=== PATIENT | female | born 1965 | race Caucasian/White ===

== ENCOUNTER 2017-08-04 08:23 | Inpatient (IN) | payer MEDICARE, OTHER ==
[~2017-08-04] VITALS: Ht 154.9 cm; Wt 47.6 kg
--- NOTE | 2017-08-04 15:15 | NUR ---
GPS NURSING NOTE PT IS A 51 Y/O FEMALE, BROUGHT IN TO THE HOSPITAL BY AMBULANCE, ADMITTED ON A 5150 HOLD FOR DTO/GD FROM [facility]. PT IS ADMITTED ON A 5150 ASA DTO/GD. PT WAS SEEN AT THE REQUEST OF [facility] RESIDENTS DUE TO PT'S INCREASING PARANOIA AND AGGRESSION. PT IS DIAGNOSED WITH SCHIZOPHRENIA, IS BELIEVED TO NOT BE TAKING HER MEDICATIONS AND HAS A HISTORY OF PSYCHIATRIC HOSPITALIZATIONS. PT HAS NOT EATEN IN SEVERAL DAYS DUE TO BELIEFS THAT HER HOUSEMATES ARE TAMPERING WITH HER FOOD. PT HAS NOT SLEPT IN 5-6 DAYS, HAS BEEN TALKING TO/ BITTING, HALLUCINATIONS AND BELIEVES HER HOUSEMATES ARE STEALING FROM HER. PT IS THREATENING TO BREAK HER HOUSEMATE'S HANDS FOR STEALING. PT CURRENTLY DENIES SUICIDAL IDEATIONS AND HOMICIDAL IDEATIONS, PT IS AGITATED, UNCOOPERATIVE, ANXIOUS, PACING THE HALLWAY, REFUSED TO TAKE ATIVAN 1 MG PO AND SPIT OUT 0.5 MG, PT IS DEMANDING, PARANOID, APPEARS TO BE RESPONDING TO INTERNAL STIMULI, VS: BP 151/93, HR 99, TEMP 98.6, RR 20, SPO2 98% RA, NO PAIN COMPLAINTS. ALL VALUABLES WERE INVENTORIED AND PT REFUSED TO ALL PAPERWORK, PT'S RIGHTS HANDBOOK WAS EXPLAINED AND GIVEN TO PT. PT WAS ORIENTED TO THE UNIT. WILL CONTINUE TO MONITOR Q15 MIN FOR SAFETY AND BEHAVIOR.
[2017-08-04] MEDS: LORAZEPAM 0.5 MG TABLET PO STA ×2 (15:29→15:32)
[2017-08-04] MEDS ORDERED: MAG HYDROX/AL HYDROX/SIMETH 30 ML UDC PO PRN (15:30)
[2017-08-04] MEDS ORDERED: ACETAMINOPHEN 325 MG TABLET PO PRN (15:30)
[2017-08-04] MEDS ORDERED: MAGNESIUM HYDROXIDE 30 ML UDC PO PRN (15:30)
--- NOTE | 2017-08-04 15:32 | NUR ---
GPS NOTE PT TOOK 0.5 MG OF ATIVAN AND SPIT OUT 0.5 MG
[2017-08-04 16:00] VITALS: BP 151/93
[2017-08-04] MEDS ORDERED: ETOD200C4 (20:24)
[2017-08-04] MEDS ORDERED: TRAM50TA2 PO (20:24)
[2017-08-04] MEDS ORDERED: GABA-534 PO (20:24)
[2017-08-04] MEDS ORDERED: MELO-107 PO (20:24)
[2017-08-04] MEDS ORDERED: METH500T6 PO (20:24)
--- NOTE | 2017-08-04 21:11 | NUR ---
GPS RN NOTE: NOTIFIED DR. BIRMINGHAM TO RECONCILE MEDICATION
[2017-08-04] MEDS ORDERED: METHOCARBAMOL (500MG) 500 MG TABLET PO SCH (22:00)
[2017-08-04] MEDS ORDERED: TRAMADOL HCL 50 MG TABLET PO SCH (22:00)
[2017-08-04] MEDS ORDERED: MELOXICAM 7.5 MG TABLET PO ONE (23:00)
--- NOTE | 2017-08-04 23:00 | NUR ---
GPS RN NOTE: PATIENT REFUSED MOBIC X 3 ATTEMPTS, EXPLAINED THE RISK AND BENEFITS BUT PATIENT STILL REFUSED. WILL CONTINUE TO MONITOR
--- NOTE | 2017-08-05 03:28 | NUR ---
GPS RN NOTE: CLARIFICATION ORDER OF TRAMADOL AND ROBAXIN RECEIVED FROM DR. BIRMINGHAM NOTED AND CARRIED OUT
[2017-08-05 08:00] VITALS: BP 132/91
[2017-08-05] MEDS: MELOXICAM 7.5 MG TABLET PO SCH (08:47)
[2017-08-05] MEDS: GABAPENTIN 300 MG CAPSULE PO SCH ×2 (08:47→16:41)
--- NOTE | 2017-08-05 08:48 | NUR ---
[id number]: PT REFUSED MORNING MEDICATIONS. OFFERED 3X. EXPLAINED THE RISK AND BENEFITS OF THE MEDICATIONS
[2017-08-05 16:27] VITALS: BP 113/80
--- NOTE | 2017-08-05 16:41 | NUR ---
[id number]: PT REFUSED EVENING MEDICATION. EVEN AFTER OFFERING 3X. EXPLAINED THE RISK AND BENEFITS.
[2017-08-05 20:15] VITALS: BP 132/88
--- NOTE | 2017-08-05 20:30 | NUR ---
GPS RN: DR. GALDAMEZ CALLED UNIT, WITH ORDERS TO TRANSFER SERVICE FOR THIS PATIENT INTO DR. PIERSON'S CARE. DR. PIERSON THEN NOTIFIED AND ACCEPTED PATIENT. WILL ENDORSE TO DAY SHIFT NURSE.
[2017-08-05] MEDS: OLANZAPINE 5 MG/TAB.RAPDIS PO SCH (22:00)
--- NOTE | 2017-08-05 22:00 | NUR ---
RN NOTES PATIENT REFUSED ZYPREXA ADMINISTRATION X3.PATIENT STATES SHE DOES NOT TAKE ZYPREXA AND ITS NOT A GOOD DRUG TO TAKE. PATIENT EDUCATION REINFORCED. WILL CONTINUE TO MONITOR.
[2017-08-06 07:56] VITALS: BP 159/97
[2017-08-06] MEDS: MELOXICAM 7.5 MG TABLET PO SCH (09:00)
[2017-08-06] MEDS: GABAPENTIN 300 MG CAPSULE PO SCH ×2 (09:00→17:23)
[2017-08-06] MEDS: LORAZEPAM 0.5 MG TABLET PO PRN (10:38)
--- NOTE | 2017-08-06 11:28 | NUR ---
patient became ouy of control and yelling and being intrusive to staff and peers , pt has refused all meds , called to dr. MENON FOR ORDERS . HE ORDERTED HALDOL 5M IM TIMES 1 AND ATIVAN 1MG IM AND BENADRYL 25 MG OF WHICH PT IS ALLERGIC TO BENADRYL . [address] menon regarding benadryl allergy waiting for return call
[2017-08-06] MEDS ORDERED: HALOPERIDOL LACTATE INJ 5 MG/ML VIAL IM ONE (11:30)
[2017-08-06] MEDS ORDERED: LORAZEPAM INJ 2 MG/ML VIAL IM ONE (11:30)
[2017-08-06 16:18] VITALS: BP 143/88
[2017-08-06 20:34] VITALS: BP 156/83
[2017-08-06] MEDS: OLANZAPINE 5 MG/TAB.RAPDIS PO SCH (22:00)
--- NOTE | 2017-08-06 22:43 | NUR ---
GPS RN NOTES PATIENT REFUSED HS MEDICATION. PATIENT WAS SAYING SHE WAS GOING TO TAKE MEDICATION BUT PRETENDED TO BE ASLEEP. STATES THAT SHE IS TIRED AND COLD. MEDICATION OFFERED 3X. PATIENT REFUSED.
--- NOTE | 2017-08-07 03:36 | NUR ---
GPS RN NOTES PATIENT CAME TO RN COMPLAINING OF BACK PAIN AND ASKING FOR TYLENOL. ACETAMINOPHEN GIVEN TO PATIENT BUT PATIENT REFUSED. ASKED RN HOW SHE KNEW THAT PATIENT HAS BACK PAIN. STATES SHE COULD NOT TRUST THAT MEDICATION IS SAFE TO TAKE. FURTHERMORE, PATIENT ASKED FOR A SNACK AND AFTER EATING WENT TO BATHROOM AND TRIED TO VOMIT. STATED THAT SOMETHING WAS WRONG WITH THE FOOD AND SHES TRYING TO VOMIT IT OUT. PATIENT VERY PARANOID AT THIS TIME.
[2017-08-07 08:00] VITALS: BP 133/88
[2017-08-07] MEDS: GABAPENTIN 300 MG CAPSULE PO SCH ×2 (08:34→17:09)
[2017-08-07] MEDS: MELOXICAM 7.5 MG TABLET PO SCH (08:35)
--- NOTE | 2017-08-07 15:10 | NUR ---
Initial Discharge Note: Patient is unwilling to disclose the address / contact number to her sober living, saying she wants to return there. ANUPAM received a voicemail from Arti, stock preparation operator of the sober living. In the voicemail, Arti stated that patient is not permitted to return. ANUPAM spoke with patient and patient stated that she is going to live with her boyfriend, Joe, but that she paid rent through the month of July and that she need to go there to get her things. Patient refuses alternative placement. ANUPAM called and left a voicemail for Arti, . ANUPMA provided her direct contact information in the voicemail.
[2017-08-07 16:00] VITALS: BP 110/78
[2017-08-07 20:00] VITALS: BP 125/84
[2017-08-07] MEDS: OLANZAPINE 5 MG/TAB.RAPDIS PO SCH (21:26)
--- NOTE | 2017-08-07 21:26 | NUR ---
GPS/MATTRESS STUFFER NOTES: PT. REFUSED HS OLANZAPINE 5MG PO ORDERED. OFFERED 3X. EXPLAINED RISK AND BENEFITS. PT. STILL REFUSED. WILL CONTINUE TO MONITOR.
[2017-08-07] MEDS: LORAZEPAM 0.5 MG TABLET PO PRN (23:15)
[2017-08-08 08:00] VITALS: BP 132/88
[2017-08-08] MEDS: MELOXICAM 7.5 MG TABLET PO SCH (08:15)
[2017-08-08] MEDS: GABAPENTIN 300 MG CAPSULE PO SCH ×2 (08:15→17:00)
[2017-08-08] MEDS: HALOPERIDOL 5 MG TABLET PO SCH ×2 (11:30→17:00)
[2017-08-08] MEDS: BENZTROPINE MESYLATE (1 MG) 1 MG TABLET PO SCH ×2 (11:30→17:00)
[2017-08-08] MEDS: BENZTROPINE MESYLATE (2MG/2ML) 2 MG/2 ML AMPUL IM PRN ×2 (12:21→18:26)
[2017-08-08] MEDS: HALOPERIDOL LACTATE INJ 5 MG/ML VIAL IM PRN ×2 (12:21→18:26)
--- NOTE | 2017-08-08 12:21 | NUR ---
rn notes patient lenora at this time, an refused po medication offered medication x3 but still refused, administered Haldol 5 mg/ml im, and Cogentin 1 mg/ml im left upper gluteal area as prescribed per refusal po medication. continued monitoring.
[2017-08-08 16:28] VITALS: BP 116/72
--- NOTE | 2017-08-08 18:30 | NUR ---
RN NOTES PATIENT REFUSED PO SCHEDULED MEDICATION, OFFERED X3 BUT STILL REFUSED, ADMINISTERED HALDOL 5 MG/ML IM, AND COGENTIN 1 MG /ML IM RIGHT OUTER GLUTEAL AREA, V/S TAKEN STABLE, CALL BURCH WITHIN TO REACH, SAFETY PRECAUTION MAINTAINED ALL THE TIME.
[2017-08-08 20:00] VITALS: BP 105/82
--- NOTE | 2017-08-08 20:00 | NUR ---
GPS RN NOTE: PATIENT PACING HALLWAY, PARANOID, EASILY AGITATED. PATIENT REQUEST FOR TYLENOL, WHEN REMOVED, PATIENT REFUSED TO TAKE TYLENOL. WILL CONTINUE TO MONITOR.
[2017-08-08] MEDS: LORAZEPAM 0.5 MG TABLET PO PRN (20:45)
--- NOTE | 2017-08-08 20:47 | NUR ---
GPS RN NOTE: PATIENT ANXIOUS AND REQUEST FOR MEDICATION. ATIVAN 1MG ORAL GIVEN PER MD ORDER. WILL CONTINUE TO MONITOR.
[2017-08-08] MEDS: TRAMADOL HCL 50 MG TABLET PO PRN (21:51)
--- NOTE | 2017-08-08 22:00 | NUR ---
GPS RN NOTE: PATIENT COMPLAINS OF HEAD PAIN 01/06, ULTRAM 50MG ORAL GIVEN PER MD ORDER. WILL CONTINUE TO MONITOR.
[2017-08-08] MEDS: TEMAZEPAM 7.5 MG CAPSULE PO PRN (22:30)
[2017-08-09 08:00] VITALS: BP 120/81
[2017-08-09] MEDS: GABAPENTIN 300 MG CAPSULE PO SCH ×2 (08:26→17:57)
[2017-08-09] MEDS: HALOPERIDOL 5 MG TABLET PO SCH ×2 (08:27→17:57)
[2017-08-09] MEDS: MELOXICAM 7.5 MG TABLET PO SCH (08:27)
[2017-08-09] MEDS: BENZTROPINE MESYLATE (1 MG) 1 MG TABLET PO SCH ×2 (08:27→17:57)
[2017-08-09] MEDS: TRAMADOL HCL 50 MG TABLET PO PRN ×2 (08:27→19:54)
--- NOTE | 2017-08-09 11:44 | NUR ---
GPS/RN PATIENT IS REPEATEDLY CALLING , HE DOES NOT WANT HER CALLING AT THIS TIME AND WOULD LIKE TO HOLD ALL CALLS FROM HER UNTIL FURTHER NOTICE. PER DR CHAN NEW ORDER FOR PATIENT TO USE PHONE AND MAKE CALLS WITH STAFF SUPERVISION. ORDER IN SYSTEM.
[2017-08-09 16:00] VITALS: BP 113/70
--- NOTE | 2017-08-09 19:54 | NUR ---
GPS/RN-NOTES: PATIENT COMPLAINED OF MILD MEDIAL BACK PAIN AND PATIENT IS REQUESTING FOR TRAMADOL. VITAL SIGNS ARE STABLE, TRAMADOL 50MG PO GIVEN PRN ORDER. PATIENT SPIT IT OUT THE MEDICATION, AND STATES IT DOESN'T WORK WELL AND CAUSES ME NAUSEOUS. EXPLAINED RISKS AND BENEFITS. WILL CONTINUE TO MONITOR.
[2017-08-09 20:00] VITALS: BP 120/70
[2017-08-10 08:33] VITALS: BP 111/78
[2017-08-10] MEDS: MELOXICAM 7.5 MG TABLET PO SCH (09:00)
[2017-08-10] MEDS: GABAPENTIN 300 MG CAPSULE PO SCH ×2 (10:02→16:57)
[2017-08-10] MEDS: BENZTROPINE MESYLATE (1 MG) 1 MG TABLET PO SCH ×2 (10:09→16:56)
[2017-08-10] MEDS: METHOCARBAMOL (500MG) 500 MG TABLET PO PRN (16:57)
--- NOTE | 2017-08-10 16:57 | NUR ---
NURSING NOTE PT COMPLAINED OF MILD BACK PAIN, PT REQUESTING ROBAXIN, ROBAXIN 500 MG PO WAS GIVEN PER PT REQUEST, VS STABLE
[2017-08-10] MEDS: HALOPERIDOL 5 MG TABLET PO SCH (16:58)
[2017-08-10 17:07] VITALS: BP 123/82
[2017-08-10 19:59] VITALS: BP 127/82
[2017-08-10] MEDS: TEMAZEPAM 7.5 MG CAPSULE PO PRN (22:15)
[2017-08-10] MEDS: TRAMADOL HCL 50 MG TABLET PO PRN (22:44)
--- NOTE | 2017-08-10 22:44 | NUR ---
GPS RN NOTES: PATIENT C/O PAIN ON HER LOWER BACK ON A SCALE OF 0/10 AND 10 IS THE WORST PAIN IMAGINABLE PATIENT RATES 7/10, PATIENT IS REQUESTING TRAMADOL. ADMINISTERED TRAMADOL 50MG PO PRN ORDER. WILL CONTINUE TO MONITOR AND ASSES FOR PAIN.
--- NOTE | 2017-08-10 23:00 | NUR ---
GPS RN NOTES: PATIENT IS REQUESTING FOR A STRONGER PAIN MEDICATION SHE STATED SHE WAS TAKING NORCO 5/325MG PO BID AT HOME. PAGED DR. BRAVO [facility] ON-CALL. AWAITING CALL BACK FROM .
[2017-08-11 08:00] VITALS: BP 122/81
[2017-08-11] MEDS: HALOPERIDOL 5 MG TABLET PO SCH ×2 (09:16→17:44)
[2017-08-11] MEDS: MELOXICAM 7.5 MG TABLET PO SCH (09:16)
[2017-08-11] MEDS: GABAPENTIN 300 MG CAPSULE PO SCH ×2 (09:16→17:44)
[2017-08-11] MEDS: BENZTROPINE MESYLATE (2MG/2ML) 2 MG/2 ML AMPUL IM PRN (09:17)
[2017-08-11] MEDS: BENZTROPINE MESYLATE (1 MG) 1 MG TABLET PO SCH ×2 (09:18→17:44)
[2017-08-11 16:00] VITALS: BP 127/76
--- NOTE | 2017-08-11 16:16 | NUR ---
Discharge Planning: Patient is evasive about her information and it seems that patient is paranoid about disclosing this information [address / try out person]. Patient believes that someone is "after her" and that the cooks at the hospital are "trying to poison" her. Patient is unwilling to discuss any discharge plans. Patient does not want any alternative placements. Patient states that she wants to go to her sober living facility, get her things, and move in with her boyfriend, Joe. Patient does not wish to disclose the contact number for Joe. ANUPAM left a voicemail for Arti binder lockstitch of the sober [facility], . ANUPAM provided her direct contact information in the voicemail. ANUPAM has not received any calls from Arti since Arti's initial phone call. Arti does not answer her phone and does not return calls.
[2017-08-11] MEDS: TRAMADOL HCL 50 MG TABLET PO PRN (19:56)
[2017-08-11 19:58] VITALS: BP 118/79
[2017-08-12] MEDS: TRAMADOL HCL 50 MG TABLET PO PRN ×3 (04:36→18:45)
[2017-08-12 08:00] VITALS: BP 115/69
--- NOTE | 2017-08-12 10:38 | NUR ---
Discharge Planning: ANUPAM received a call from Arti rebar worker of the sober living, . Arti confirmed that patient's belongings are at the sober living facility and that they are in safely kept in a safe. Arti stated that patient is able to come get her belongings when she is discharged, but she would like to know in advance in order to make the time for that. ANUPAM stated that she will inform Arti of the discharge.
[2017-08-12] MEDS: GABAPENTIN 300 MG CAPSULE PO SCH ×2 (10:47→16:40)
[2017-08-12] MEDS: HALOPERIDOL 5 MG TABLET PO SCH ×2 (10:47→16:40)
[2017-08-12] MEDS: BENZTROPINE MESYLATE (1 MG) 1 MG TABLET PO SCH ×2 (10:49→16:40)
[2017-08-12] MEDS: MELOXICAM 7.5 MG TABLET PO SCH (10:49)
[2017-08-12 16:00] VITALS: BP 123/71
[2017-08-12 20:41] VITALS: BP 120/69
[2017-08-13] MEDS: TRAMADOL HCL 50 MG TABLET PO PRN ×2 (01:58→12:35)
[2017-08-13] MEDS: LORAZEPAM 0.5 MG TABLET PO PRN ×2 (03:11→23:03)
--- NOTE | 2017-08-13 03:12 | NUR ---
GPS RN NOTES: PATIENT VERY ANXIOUS, V/S ARE STABLE, ADMINISTERED ATIVAN 1MG PO PRN ORDER. WILL CONTINUE TO MONITOR [id number] FOR SAFETY AND BEHAVIOR.
[2017-08-13 08:00] VITALS: BP 112/72
[2017-08-13] MEDS: MELOXICAM 7.5 MG TABLET PO SCH (09:00)
[2017-08-13] MEDS: BENZTROPINE MESYLATE (1 MG) 1 MG TABLET PO SCH ×2 (09:20→16:58)
[2017-08-13] MEDS: HALOPERIDOL 5 MG TABLET PO SCH (09:21)
[2017-08-13] MEDS: GABAPENTIN 300 MG CAPSULE PO SCH ×2 (09:21→16:58)
[2017-08-13] MEDS ORDERED: ALBUTEROL FS 2.5 MG/3 ML VIAL.NEB NEB PRN (11:30)
[2017-08-13] MEDS ORDERED: ALBUTEROL SULFATE 8 GM HFA.AER.AD IH PRN (11:30)
--- NOTE | 2017-08-13 12:35 | NUR ---
RN NOTE: PATIENT STATES SHE HAS 8/10 PAIN. TRAMDOL 50 MG GIVEN
[2017-08-13] MEDS: ARIPIPRAZOLE 5 MG TABLET PO SCH (12:42)
--- NOTE | 2017-08-13 14:29 | NUR ---
Discharge Planning: SW spoke with patient today. Patient appears to be less paranoid and more cooperative. However, patient still remains evasive. Patient states that she wants a list of sober living facilities, but does not want SW to get involved in securing placement. Patient is unwilling to go to SNF [stating she is independent] or a board and care [stating it is too expensive]. Patient states that she has a budged of $500. Patient states that she wants to find a room for rent, but wants ANUPAM to provide her with resources. SW gave patient a printout of sober living facilities. SW will also provide patient with additional resources [shelters, hotlines, follow up appointments]. Patient states that her plan remains the same: to get her belongings from her old sober living and then move in with her boyfriend or a room for rent on her own.
--- NOTE | 2017-08-13 15:40 | NUR ---
Discharge Planning: At patient's request, SW provided her a list of sober living facilities in the [facility]. SW once again offered her help in finding placement. Patient was unwilling and stated she was capable of handling it on her own. Patient was unwilling to have SW be involved.
[2017-08-13 16:14] VITALS: BP 116/69
[2017-08-13 20:19] VITALS: BP 117/67
[2017-08-13] MEDS: LIDOCAINE 5% (PATCH) 1 EA PATCH TP SCH (21:38)
[2017-08-13] MEDS: METHOCARBAMOL (500MG) 500 MG TABLET PO PRN (21:38)
--- NOTE | 2017-08-13 21:38 | NUR ---
GPS RN NOTES: PATIENT C/O MUSCLE SPASM, PATIENT IS REQUESTING FOR ROBAXIN. ROBAXIN 500MG PO GIVEN HS PRN ORDER. WILL CONTINUE TO MONITOR.
[2017-08-13] MEDS: TEMAZEPAM 7.5 MG CAPSULE PO PRN (22:43)
--- NOTE | 2017-08-13 23:03 | NUR ---
GPS RN NOTES: PATIENT IS ANXIOUS, V/S ARE STABLE, ATIVAN 1MG PO GIVEN PRN ORDER. WILL CONTINUE TO MONITOR [id number] FOR SAFETY AND BEHAVIOR.
[2017-08-14 08:00] VITALS: BP 138/83
[2017-08-14] MEDS: GABAPENTIN 300 MG CAPSULE PO SCH ×2 (08:58→16:54)
[2017-08-14] MEDS: ARIPIPRAZOLE 5 MG TABLET PO SCH (08:58)
[2017-08-14] MEDS: BENZTROPINE MESYLATE (1 MG) 1 MG TABLET PO SCH ×2 (08:58→16:54)
[2017-08-14] MEDS: MELOXICAM 7.5 MG TABLET PO SCH (08:59)
[2017-08-14] MEDS: TRAMADOL HCL 50 MG TABLET PO PRN ×2 (11:21→19:42)
--- NOTE | 2017-08-14 13:50 | NUR ---
Discharge Planning: SW made another attempt to speak with patient regarding discharge. Patient stated that she had a plan in place, but was evasive about the plan. Patient stated that she is a "private person" and that it is her "right to not tell [me] anything." SW asked patient if patient felt safe and comfortable taking the bus. Patient stated, "I'm capable. I can take care of myself." Patient stated that she wanted to leave the hospital after having lunch. Patient stated, "I [place] I can stay with them." Patient also stated, "I can stay in a motel." Patient stated that she was most concerned about getting her belongings from her sober living facility. Patient, once again, was unwilling to disclose the address. Patient stated that the referrals provided by high school social science teacher were helpful and that she has made a lot of calls and "has leads" on placement. SW asked if patient wanted her help and patient stated, "no. I told you I can do it on my own." Patient was in agreement with the discharge plan.
--- NOTE | 2017-08-14 14:15 | NUR ---
Discharge Planning: ANUPAM called Arti media job titles of the sober living, and informed her that patient was discharging tomorrow. Arti stated that patient is able to pick her belongings up.
[2017-08-14 16:00] VITALS: BP 118/68
--- NOTE | 2017-08-14 19:42 | NUR ---
C/O ACHY BACK PAIN, 6/10 ON PAIN SCALE, TRAMADOL 50 MG TAB 1 PO GIVEN.
[2017-08-14 20:00] VITALS: BP 126/67
--- NOTE | 2017-08-14 21:10 | NUR ---
TEMAZEPAM 7.5 MG CAP 1 PO GIVEN FOR INSOMNIA PER PATIENT'S REQUEST AT 2111
[2017-08-14] MEDS: LIDOCAINE 5% (PATCH) 1 EA PATCH TP SCH (21:11)
[2017-08-14] MEDS: TEMAZEPAM 7.5 MG CAPSULE PO PRN (21:12)
[2017-08-14] MEDS: LORAZEPAM 0.5 MG TABLET PO PRN (21:36)
--- NOTE | 2017-08-14 21:38 | NUR ---
PATIENT RESTLESS, UP AND AROUND, HYPERVERBAL, LORAZEPAM 1 MG PO GIVEN.
--- NOTE | 2017-08-14 22:35 | NUR ---
PATIENT STILL AWAKE AT THIS TIME.
[2017-08-15] MEDS ORDERED: METHOCARBAMOL (500MG) 500 MG TABLET ONE (01:03)
[2017-08-15] MEDS: METHOCARBAMOL (500MG) 500 MG TABLET PO PRN (01:08)
--- NOTE | 2017-08-15 01:09 | NUR ---
PATIENT STATED, " I CAN NOT SLEEP, I NEED A MUSCLE RELAXANT, CAN I HAVE MY ROBAXIN?" METHOCARBAMOL 500 MG TAB 1 PO GIVEN
[2017-08-15] MEDS: LORAZEPAM 0.5 MG TABLET PO PRN (03:40)
--- NOTE | 2017-08-15 03:40 | NUR ---
ATIVAN 1 MG TAB PO GIVEN FOR ANXIETY
[2017-08-15] MEDS: GABAPENTIN 300 MG CAPSULE PO SCH (08:34)
[2017-08-15] MEDS: MELOXICAM 7.5 MG TABLET PO SCH (08:34)
[2017-08-15] MEDS: BENZTROPINE MESYLATE (1 MG) 1 MG TABLET PO SCH (08:34)
[2017-08-15] MEDS: TRAMADOL HCL 50 MG TABLET PO PRN (08:40)
--- NOTE | 2017-08-15 08:40 | NUR ---
GPS/RN-NOTES PATIENT C/O 01/06 GENERALIZED BODY PAIN AND REQUESTING FOR ULTRAM. ULTRAM 50MG P.O GIVEN PRN ORDER. WILL CONT. MONITORING FOR SAFETY.
[2017-08-15 08:44] VITALS: BP 158/68
[2017-08-15] MEDS ORDERED: ARIPIPRAZOLE 5 MG TABLET PO SCH (09:00)
--- NOTE | 2017-08-15 09:00 | NUR ---
GPS/RN-NOTES PATIENT AWAKE,AMBULATING IN AND OUT HER ROOM NO COMPLAIN OF PAIN OR DISCOMFORT AT THIS TIME.
--- NOTE | 2017-08-15 09:52 | NUR ---
Discharge Planning: In the morning, patient stated that she needs time find an apartment. ANUPAM explained that patient is unable to do so in the hospital. Patient is ready for discharge, as deemed by psychiatrist and medical doctor. SW, yet again, offered alternative placements. At first, patient agreed to a SNF to "have more time." ANUPAM faxed SN[facility], fax #[phone]. Patient then came to ANUPAM's office and stated that she did not need a SNF because she is independent and can "handle herself." Patient stated she will not go to a SNF and will go back to the original plan. ANUPAM asked patient if she was certain. Patient stated that she was. SW to proceed with discharge planning. Patient is alert and oriented x4. patient is ambulatory. Patient denies suicidal and homicidal ideation. Patient denies visual and auditory hallucinations.
--- NOTE | 2017-08-15 12:09 | NUR ---
GPS/RN D/C ORDERS FROM DR PIERSON AND OSVALDO RECEIVED AND CARRIED OUT. PT RECEIVED THE EXIT CARE INSTRUCTIONS AND PRECRIPTIONS FROM DR PIERSON AND DR FERNANDEZ. NO SI OR HI AT THE TIME OF DISCHARGE PROPERTY RETURNED AND SIGNED FOR. BUS TOKENS GIVEN PER PT REQUEST TO GET TO TO SOBER LIVING [phone]
--- NOTE | 2017-08-15 12:31 | NUR ---
Discharge Note: Patient states she will go to [email or web address] to get her belongings and to negotiate with her landlord. [facility], but patient is unwilling to disclose the address. Arti, rebar fabricator of the [email or web address], is aware of discharge and stated that patients belongings are kept for her. Patient informed SW that she has a back-up plan in place as well. Patient is evasive about her plans. Please see previous notes of SWs attempts to help facilitate placement. SW secured bus tokens for patient, which will be provided to her upon discharge. Upon discharge, patient is alert and oriented x4. Patient denies suicidal and homicidal ideation. Patient denies visual and auditory hallucinations. Patient does not use a walker. Patient is ambulatory. Patient does not wish for to secure follow-up appointments for her. SW provided referrals for patient [please see chart]. Patient was referred to see an rod drawer at [facility] [address] [place] [address] . Patient was referred to see psychiatrist at [address] [address] . Additional referrals included [email or web address] resources, hotlines [see chart]. Addendum: 08/15/17 at 1407 by CORRINA BO Patient's mother, Padmaja Ordaz [phone], is aware of the discharge.
[2017-08-15 13:00] VITALS: BP 122/80
--- NOTE | 2017-08-15 13:35 | NUR ---
GPS/RN-NOTES PATIENT DISCHARGE TO [facility] TODAY DR. PIERSON AND DR GAGNON AWARE AND AGREES OF PATIENT DISCHARGE WITH ORDERS.ALL DISCHARGE MEDICATIONS WAS REVIEWED WITH THE PATIENT WITH UNDERSTANDING. ALL RX PAPERS WAS GIVEN TO THE PATIENT. PATIENT DID NOT VERBALIZE SI/HI,DENIES VISUAL/AUDITORY HALLUCINATIONS AT THE TIME OF DISCHARGE . PATIENT LEFT THE UNIT IN STABLE CONDITION ,AMBULATORY VITAL SIGNS ARE STABLE AND LEFT WITH ALL HER BELONGINGS.PATIENT WAS ASSISTED IN THE LOBBY FOR SAFETY. PATIENT MOTHER ( JUAREZ RAZORAINE [phone]) ALSO MADE AWARE OF PATIENT DISCHARGE.
== END 2017-08-15 13:35 | disposition home or self-care (01) | DRG 885 ==
LOC: GPS 14:11
PROVIDERS: ADMIT Psychiatry & Neurology Psychiatry; ATTEND Internal Medicine
DX: F25.9 Schizoaffective disorder, unspecified (principal); F23 Brief psychotic disorder; E78.5 Hyperlipidemia, unspecified; G89.29 Other chronic pain; M19.90 Unspecified osteoarthritis, unspecified site; Z73.6 Limitation of activities due to disability
CPT/HCPCS: 87081-TC; J0515; J1630; J2060